=== PATIENT | female | born 1970 | race African-American/Black ===

== ENCOUNTER 2017-03-12 14:19 | Emergency (ER) | payer OTHER, SELFPAY | END 2017-03-12 16:16 | disposition home or self-care (01) | LOC: SCSER 14:19 | DX: J01.90 Acute sinusitis, unspecified (principal); H66.92 Otitis media, unspecified, left ear; D50.9 Iron deficiency anemia, unspecified; I10 Essential (primary) hypertension; E11.9 Type 2 diabetes mellitus without complications; K21.9 Gastro-esophageal reflux disease without esophagitis; E78.5 Hyperlipidemia, unspecified; Z79.84 Long term (current) use of oral hypoglycemic drugs; Z79.899 Other long term (current) drug therapy | CPT/HCPCS: 99283 ==

== ENCOUNTER 2017-03-22 10:31 | Emergency (ER) | payer OTHER, SELFPAY | END 2017-03-22 12:03 | disposition home or self-care (01) | LOC: SCSER 10:31 | DX: J01.90 Acute sinusitis, unspecified (principal); D50.0 Iron deficiency anemia secondary to blood loss (chronic); E66.9 Obesity, unspecified; I10 Essential (primary) hypertension; E11.9 Type 2 diabetes mellitus without complications; K21.9 Gastro-esophageal reflux disease without esophagitis; E78.5 Hyperlipidemia, unspecified; Z86.718 Personal history of other venous thrombosis and embolism; Z79.84 Long term (current) use of oral hypoglycemic drugs; Z79.899 Other long term (current) drug therapy | CPT/HCPCS: 99283 ==

== ENCOUNTER 2017-04-01 14:26 | Observation (INO) | payer OTHER, SELFPAY ==
[2017-04-01 15:31] LABS: INR-International Normal Ratio 2.7; Prothrombin Time 30.1 SEC (12.0-14.7)
[2017-04-01 15:33] LABS: Band 2 % (5-11); Eosinophils 5 % (0-10); Hemoglobin 11.7 g/dL (12.0-16.0); Lymphocytes 24 % (21-51); MDiff Complete? YES; Mean Corpuscular HGB CONC 33.2 g/dL (32.0-36.0); Mean Corpuscular Hemoglobin 28.2 pg (27.0-31.0); Mean Corpuscular Volume 84.9 fl (81.0-99.0); Mean Platelet Volume 6.6 fL (7.4-10.4); Monocytes 8 % (0-10); Neutrophil 56 % (42-75); PLT Morphology Comment Appears Adequate; Platelet Count 293 thou/uL (130-400); RBC Distribution Width 12.6 % (11.5-14.5); Reactive Lymphocytes 5 % (0-10); Red Blood Cell (RBC) Count 4.14 mill/uL (4.20-5.40); White Blood Cell (WBC) Count 4.9 thou/uL (4.8-10.8)
[2017-04-01 15:40] LABS: ALT (SGPT) 9 U/L (8-55); AST (SGOT) 17 U/L (5-34); Albumin 3.6 g/dL (3.5-5.0); Alkaline Phosphatase 77 U/L (40-150); Anion Gap 15 mmol/L (10-20); BUN (Urea Nitrogen) 11 mg/dL (7.0-18.7); Bilirubin, Total 0.5 mg/dL (0.2-1.2); Calc. Creatinine Clearance 0 mL/min (70-130); Calcium 9.4 mg/dL (7.8-10.44); Carbon Dioxide 26 mmol/L (22-29); Chloride 103 mmol/L (98-107); Estimated GFR-MDRD 54; Glucose 169 mg/dL (70-105); Potassium 3.9 mmol/L (3.5-5.1); Protein, Total 7.6 g/dL (6.0-8.3); Sodium 140 mmol/L (136-145)
--- NOTE | 2017-04-01 16:40 | RAD ---
LEFT KNEE FOUR VIEWS: Indication: Pain. FINDINGS: There is moderate osteoarthritis without fracture, dislocation, or significant joint abnormality. IMPRESSION: No acute osseous abnormality of the left knee. POS: [facility]
--- NOTE | 2017-04-01 17:57 | ULT ---
RIGHT LOWER EXTREMITY VENOUS DOPPLER: History: History of DVT and PE. Currently on blood thinners. Comparison: 06-14-16 ULTRASOUND WITH DOPPLER DUPLEX VENOUS LOWER EXTREMITY RIGHT TECHNIQUE: Color flow Doppler, spectral waveform analysis of pulsed Doppler, and emerson-scale imaging with flash maurice and augmentation, were used to evaluate the bilateral common femoral, femoral, popliteal, dot net developer ior tibial, and superficial femoral, veins; and the proximal portions of the profunda femoral and gre ater saphenous, veins. FINDINGS: There is partial thrombosis of the right popliteal vein. There is partial occlusion of the right femo ral vein. The distal popliteal vein is completely non-compressible. IMPRESSION: Partially occlusive thrombus distal right femoral vein extending to the proximal popliteal vein with occlusive thrombus in the distal popliteal vein. POS: [facility]
[2017-04-01] MEDS ORDERED: Ondansetron ODT 4 MG TAB SL PRN (19:08)
[2017-04-01] MEDS ORDERED: Ondansetron HCl/PF 4 MG/2 ML Vial IVP PRN (19:08)
[2017-04-01] MEDS ORDERED: Acetaminophen 325 MG TAB PO PRN (19:08)
[2017-04-01 19:39] VITALS: BMI 46.3
[2017-04-01] MEDS ORDERED: HYDROcodone/Acetaminophen 5/325 mg Tablet PO PRN (20:08)
[2017-04-01] MEDS ORDERED: Calcium Carbonate 500 MG ChewTAB PO PRN (20:08)
[2017-04-01] MEDS ORDERED: Enoxaparin Sodium 120 MG/0.8 ML SYRINGE SC SCH (20:15)
[2017-04-01] MEDS ORDERED: HumaLOG 300 UNITS/3 ML VIAL SC PRN (20:20)
[2017-04-01] MEDS ORDERED: Dextrose 5% in Water 1,000 ML IV PRN (20:20)
[2017-04-01] MEDS ORDERED: Dextrose 50% Abboject 50 ML SYRINGE SLOW IVP PRN (20:20)
[2017-04-01] MEDS ORDERED: WARFARIN PO PRN (20:23)
[2017-04-01] MEDS: Sodium Chloride 0.9% 1,000 ML IV SCH (21:00)
[2017-04-01] MEDS ORDERED: Pravastatin Sodium 20 MG TAB PO SCH (21:00)
[2017-04-02 04:08] VITALS: TEMP 98.2
--- NOTE | 2017-04-02 05:30 | HP ---
CHIEF COMPLAINT: Pain and swelling of the right leg. HISTORY OF PRESENT ILLNESS: This is a 46-year-old pleasant gentle lady with a history of multiple DV Ts in the past and PEs, came into the hospital because of right leg swelling. She had a Doppler done at the [facility], which showed a clot and she was transferred out here. Her INR was 2.7 as well. The patient has been admitted to our hospital for evaluation by Hematology and for further re commendations. She has no shortness of breath, no chest pain. Vitals were stable. PAST MEDICAL HISTORY: Significant for iron deficiency anemia, obesity, diabetes mellitus, hypertensi on, hyperlipidemia, and DVTs and PEs in the past. ALLERGIES: BACTRIM and Z-ALIREZA. SOCIAL HISTORY: Does not smoke, drink, or do recreational drugs. SURGERIES: None in the past. MEDICATIONS: Please see MAR. ALLERGIES: None. REVIEW OF SYSTEMS: Significant for no fever. No chills. No headache. No . No cough. No armand st pain, diarrhea, dysuria, or polyuria. No memory or mood changes. No neck pain. The patient comp lains of right leg pain and swelling. PHYSICAL EXAMINATION: VITAL SIGNS: The patient's blood pressure is 123/78, afebrile. The patient is saturating 94% on 2 l iters and is resting comfortably on room air. GENERAL: The patient is lying in bed in no apparent distress. HEENT: Atraumatic and normocephalic. Pupils equally round and reactive to light. Extraocular movem ents intact. Mucous membranes moist. NECK: Supple. No JVD. CHEST: Breath sounds heard. No rales or rhonchi. HEART: S1, S2. No murmurs or gallops. ABDOMEN: Soft. EXTREMITIES: Right leg is swollen and tender. Left leg, no edema. Distal pulses present. NEUROLOGIC: Alert, awake, oriented. No cranial deficits. No sensorimotor deficits. LABORATORY DATA: Potassium is 3.9, creatinine is 1.29. WBC count is 4.9, hemoglobin is 11. ASSESSMENT AND PLAN: 1. Recurrent deep venous thromboses in spite of having therapeutic INR. We will consult Hematology and treat the patient with therapeutic dose of Lovenox for now. We will follow Hematology recommenda tions. 2. Morbid obesity. The patient has been counseled. 3. Diabetes. Put the patient on insulin sliding scale and continue metformin. 4. Hypertension. Continue losartan and monitor the patient. 5. Hyperlipidemia, stable. 6. History of pulmonary embolism in the past. Right now, clinically stable. I will work with the corporate consultant in further caring for the patient.
[2017-04-02 05:57] LABS: #Eosinphils 0.1 thou/uL (0.0-0.7); #Monocytes 0.6 thou/uL (0.11-0.59); #Neutrophils 2.4 thou/uL (1.40-6.50); %Basophils 0.3 % (0.0-1.0); %Eosinophils 2.6 % (0.0-10.0); %Lymphocytes 38.1 % (21.0-51.0); %Monocytes 11.5 % (0.0-10.0); %Neutrophils 47.5 % (42.0-75.0); Hemoglobin 11.2 g/dL (12.0-16.0); Mean Corpuscular HGB CONC 33.6 g/dL (32.0-36.0); Mean Corpuscular Hemoglobin 29.7 pg (27.0-31.0); Mean Corpuscular Volume 88.3 fl (81.0-99.0); Mean Platelet Volume 7.7 fL (7.4-10.4); Platelet Count 279 thou/uL (130-400); RBC Distribution Width 12.9 % (11.5-14.5); Red Blood Cell (RBC) Count 3.78 mill/uL (4.20-5.40); White Blood Cell (WBC) Count 5.1 thou/uL (4.8-10.8)
[2017-04-02] MEDS ORDERED: Enoxaparin Sodium 120 MG/0.8 ML SYRINGE SC SCH (06:00)
[2017-04-02 06:12] LABS: Anion Gap 14 mmol/L (10-20); BUN (Urea Nitrogen) 15 mg/dL (7.0-18.7); Calc. Creatinine Clearance 145 mL/min (70-130); Carbon Dioxide 24 mmol/L (22-29); Chloride 104 mmol/L (98-107); Estimated GFR-MDRD 75; Glucose 141 mg/dL (70-105); Sodium 138 mmol/L (136-145)
[2017-04-02] MEDS ORDERED: metFORMIN 850 MG TAB PO SCH (08:00)
--- NOTE | 2017-04-02 08:29 | RAD ---
FRONTAL AND LATERAL IMAGING CHEST: Date: 04-02-17 Comparison: 02-07-16 History: Shortness of breath. FINDINGS: Heart and mediastinal contours are within normal limits. There is no pneumothorax or pleural fluid an d no focal consolidation or alveolar edema. IMPRESSION: No acute findings. POS: [facility]
[2017-04-02] MEDS ORDERED: Losartan Potassium 25 MG TAB PO SCH (09:00)
[2017-04-02 12:01] VITALS: BP 130/77
--- NOTE | 2017-04-02 12:23 | DIS ---
DATE OF ADMISSION: 04/01/2017 DATE OF DISCHARGE: 04/02/2017 DISCHARGE DIAGNOSES: Recurrent deep vein thrombosis, failure of Coumadin therapy, to be discharged o n Xarelto; iron deficiency anemia; obesity; diabetes mellitus; hypertension; hyperlipidemia; and pulm onary embolism in the past. CONSULTANTS: Oncology. DISCHARGE MEDICATIONS: Xarelto 15 mg p.o. b.i.d. and then to be transitioned to the 20 mg p.o. daily dose. BRIEF HOSPITAL COURSE: This is a 46-year-old pleasant lady came into the hospital with right leg swe lling. The patient was diagnosed by ultrasound to have recurrent clot. Oncology saw her and they de cided to stop the Coumadin and put her on Xarelto, because she had no insurance. They are going to g genie her some samples and then later make arrangements for her to get the Xarelto through their office . She is right now medically stable to be discharged. PHYSICAL EXAMINATION: VITAL SIGNS: At the time of discharge, blood pressure was 114/61, afebrile, pulse was 72, breathing comfortably. GENERAL: Patient is lying in bed in no apparent distress. HEENT: Atraumatic and normocephalic. Pupils equally round and reactive to light. Extraocular movem ents intact. Mucous membranes are moist. NECK: No JVD. CHEST: Breath sounds heard. There are no rales or rhonchi. HEART: S1, S2, no murmurs, rubs, or gallops. ABDOMEN: Soft. EXTREMITIES: Right leg swelling has improved. Tenderness has improved. NEUROLOGIC: Alert, awake, oriented. No cranial deficits. No sensorimotor deficits. The patient right now is medically stable to be discharged. She is asked to follow up with PCP and O ncology as an outpatient. She is asked to come back to the emergency room in case symptoms recur or she gets short of breath. She is medically stable to be discharged. Total time for this discharge took 35 minutes.
--- NOTE | 2017-04-02 12:28 | CON ---
DATE OF CONSULTATION: 04/02/2017 REASON FOR CONSULTATION: Recurrent DVT. HISTORY OF PRESENT ILLNESS: Ms. Santiago is a pleasant 46-year-old - [place] female who presented to the emergency room with complaints of right lower extremity pain. She had a vascular ultrasound which showed a partially occlusive thrombus of the distal right femoral vein extending to the proximal popliteal vein and had an occlusive thrombus of the distal popliteal. Patient is currently on Coumadin for recurrent DVT and pulmonary embolism. Her INR was therapeutic on admission. The patient's first PE was in 2014. She completed 6 months of anticoagulation and did well until 06/05/2016 when she had a repeat DVT and pulmonary embolism. She was placed on lifelong anticoagulation with Coumadin and is [facility]. She has been therapeutic since that time until she presented to the ER yesterday. She denies any shortness of breath or chest pain, no abdominal pain. She has pain in her right lower extremity. She was placed on Lovenox and we were asked to give our recommendations. PAST MEDICAL HISTORY: 1. Recurrent DVT and pulmonary embolism. 2. Diabetes mellitus 2. 3. Hypertension. 4. Hyperlipidemia. PAST SURGICAL HISTORY: None. ALLERGIES: BACTRIM and Z-ALIREZA. HOME MEDICATIONS: 1. Pepcid 40 mg daily. 2. Ferrous sulfate 325 mg daily. 3. Gabapentin 100 mg daily. 4. Hydrochlorothiazide 12.5 mg daily. 5. Losartan 50 mg daily. 6. Glucophage 850 mg daily. 7. Pravachol 20 mg daily. 8. Coumadin 12.5 mg daily. FAMILY HISTORY: No history of unprovoked clotting. She did have a brother with a DVT after a surgical procedure. SOCIAL HISTORY: No alcohol, tobacco or illicit drug use. REVIEW OF SYSTEMS: Ten point review systems is negative except for noted in HPI. PHYSICAL EXAMINATION: VITAL SIGNS: Temperature is 98.2, pulse 74, respiratory rate 16, BP is 114/61. GENERAL: Well-developed, well-nourished female in no acute distress. HEENT: Normocephalic, atraumatic. Pupils equal and reactive to light. NECK: Supple. CARDIOVASCULAR: Regular rate and rhythm. LUNGS: Clear. ABDOMEN: Soft, nontender, bowel sounds are positive. EXTREMITIES: She has mild swelling in her right calf. No clubbing or cyanosis. SKIN: No rash. HEMATOLOGIC: No petechia or purpura. NEUROLOGIC: Nonfocal. PSYCHIATRIC: The patient is alert and oriented and appropriate. PERTINENT LABORATORY AND X-RAYS: Current WBCs are 5.1, hemoglobin 11.2, hematocrit 33.4, platelet count is 279,000, 47% neutrophils, 38% lymphocytes. PT was 30.1, INR was 2.7. Sodium is 138, potassium 4.0, chloride 104, CO2 is 24 , BUN is 15, creatinine 0.97, calcium was 9, total bilirubin was 0.5, AST is 17 , ALT is 9, alkaline phosphatase is 77, serum total protein is 7.6, albumin 3.6 , globulin 4.0. Vascular ultrasound per HPI. Chest x-ray was negative for any acute process. ASSESSMENT: 1. Recurrent deep venous thrombosis, on Coumadin. 2. History of deep venous thrombosis and pulmonary embolus. DISCUSSION: The patient needs to be switched from Coumadin to factor Xa inhibitors such as Eliquis or Xarelto. Unfortunately, she is uninsured and unable to afford the medication. I have asked case management to assist with acquiring the medication in the outpatient setting and we will provide Xarelto blister pack to start while we will work on acquisition of the medication. This discussed in detail with the patient including the risks associated with Xarelto. She would like to proceed. She will follow up in our clinic in [address] Salazar. The case was discussed in detail with him. Thank you for the consult. LUCIE
[2017-04-02] MEDS: Sodium Chloride 0.9% 1,000 ML IV SCH (13:06)
== END 2017-04-02 15:49 | disposition home or self-care (01) ==
LOC: SCSER 14:26 → ONC 17:47
PROVIDERS: ADMIT Internal Medicine; ATTEND Internal Medicine
DX: I82.401 Acute embolism and thrombosis of unspecified deep veins of right lower extremity (principal); D50.9 Iron deficiency anemia, unspecified; E11.9 Type 2 diabetes mellitus without complications; I10 Essential (primary) hypertension; K21.9 Gastro-esophageal reflux disease without esophagitis; E78.00 Pure hypercholesterolemia, unspecified; M17.12 Unilateral primary osteoarthritis, left knee; E66.01 Morbid (severe) obesity due to excess calories; Z68.42 Body mass index [BMI] 45.0-49.9, adult; Z86.711 Personal history of pulmonary embolism; Z86.718 Personal history of other venous thrombosis and embolism; Z79.01 Long term (current) use of anticoagulants; Z79.84 Long term (current) use of oral hypoglycemic drugs; Z79.899 Other long term (current) drug therapy; Z88.1 Allergy status to other antibiotic agents; Z88.2 Allergy status to sulfonamides; Z88.8 Allergy status to other drugs, medicaments and biological substances; Z98.890 Other specified postprocedural states
CPT/HCPCS: 36415; 36416; 71046; 80048; 80053; 85025; 85610; 96360; 96361; 96372; G0378; J1650

== ENCOUNTER 2017-07-24 16:01 | Outpatient (CLI) | payer OTHER | END 2017-07-24 16:02 | disposition home or self-care (01) | LOC: BICMAMMO 16:01 | PROVIDERS: ATTEND Family Medicine | DX: Z12.31 Encounter for screening mammogram for malignant neoplasm of breast (principal); Z80.3 Family history of malignant neoplasm of breast | CPT/HCPCS: 77063; 77067 ==

== ENCOUNTER 2017-08-14 04:00 | Outpatient (CLI) | payer OTHER ==
--- NOTE | 2017-08-15 09:11 | MRI ---
LUMBAR SPINE MRI WITHOUT CONTRAST: Date: 08-14-17 Comparison: None. History: Left lower extremity radiculopathy, back pain radiating into bilateral hips. Technique: Multiplanar, multisequence MR imaging of the lumbar spine provided without contrast. FINDINGS: The sagittal STIR imaging demonstrates no focal area of osseous marrow edema. Lumbar vertebral body h eight and alignment is within normal limits. Body habitus limits detailed assessment of the contents of the thecal sac on the axial T1 and T2 weighted imaging. Assuming five lumbar type vertebral bodies , the conus medullaris terminates in the L1 region. T12-L1: No significant central canal or neural foraminal stenosis. L1-2: Intervertebral disc height and signal intensity is within normal limits. Mild bilateral facet h ypertrophy with no significant central canal or neural foraminal stenosis. L2-3: Mild bilateral facet hypertrophy, left greater than right. Intervertebral disc height and signa l intensity appears within normal limits with no significant central canal or neural foraminal stenos is. L3-4: Mild bilateral facet hypertrophy. Intervertebral disc height and signal intensity is within nor mal limits with no significant central canal or neural foraminal stenosis. L4-5: Moderate bilateral facet hypertrophy. Intervertebral disc height and signal intensity within no rmal limits. No significant central canal or neural foraminal stenosis. L5-S1: Bilateral facet hypertrophy, left greater than right. Intervertebral disc height and signal in tensity within normal limits with no significant central canal or neural foraminal stenosis. The imag ed retroperitoneal structures appear grossly unremarkable. IMPRESSION: Multilevel lower lumbar spine facet hypertrophic change. No significant central canal or neural lamar inal stenosis. POS: [facility]
== END 2017-08-14 04:01 | disposition home or self-care (01) ==
LOC: SCSMRI 04:00
PROVIDERS: ATTEND Psychiatry & Neurology Neurology
DX: M54.16 Radiculopathy, lumbar region (principal); M46.96 Unspecified inflammatory spondylopathy, lumbar region
CPT/HCPCS: 72148

== ENCOUNTER 2018-01-10 22:15 | Emergency (ER) | payer OTHER ==
[2018-01-10] MEDS ORDERED: Acetaminophen 500 MG TAB ONE (22:41)
[2018-01-10 22:59] LABS: #Basophils 0.1 thou/uL (0.0-0.2); #Eosinphils 0.1 thou/uL (0.0-0.7); #Lymphocytes 1.7 thou/uL (1.20-3.40); #Monocytes 0.5 thou/uL (0.11-0.59); #Neutrophils 3.2 thou/uL (1.40-6.50); %Basophils 2.1 % (0.0-1.0); %Eosinophils 2.1 % (0.0-10.0); %Lymphocytes 30.1 % (21.0-51.0); %Monocytes 8.1 % (0.0-10.0); %Neutrophils 57.5 % (42.0-75.0); Hemoglobin 12.5 g/dL (12.0-16.0); Mean Corpuscular HGB CONC 33.2 g/dL (32.0-36.0); Mean Corpuscular Hemoglobin 28.4 pg (27.0-31.0); Mean Corpuscular Volume 85.5 fL (78.0-98.0); Mean Platelet Volume 8.8 fL (7.4-10.4); Platelet Count 197 thou/uL (130-400); White Blood Cell (WBC) Count 5.6 thou/uL (4.8-10.8)
[2018-01-10 23:13] LABS: ALT (SGPT) 9 U/L (8-55); AST (SGOT) 15 U/L (5-34); Alkaline Phosphatase 87 U/L (40-150); Anion Gap 14 mmol/L (10-20); BUN (Urea Nitrogen) 13 mg/dL (7.0-18.7); Bilirubin, Total 0.4 mg/dL (0.2-1.2); Calc. Creatinine Clearance 0 mL/min (70-130); Calcium 10.1 mg/dL (7.8-10.44); Carbon Dioxide 27 mmol/L (22-29); Chloride 104 mmol/L (98-107); Estimated GFR-MDRD 61; Globulin 4.1 g/dL (2.4-3.5); Glucose 153 mg/dL (70-105); Potassium 3.9 mmol/L (3.5-5.1); Protein, Total 8.1 g/dL (6.0-8.3); Sodium 141 mmol/L (136-145)
--- NOTE | 2018-01-11 08:07 | ULT ---
PRELIMINARY REPORT/[facility]/EMERGENTY AFTER-HOURS PROCEDURE Addendum created by Luis Chappell MD on 01/11/2018 12:44 AM Central Time ([place] & [place]) THIS REPORT CONT AINS FINDINGS THAT MAY BE CRITICAL TO PATIENT CARE. The findings were verbally communicated via telep galo conference with SUSAN NGUYEN at 12:44 AM CDT on 01/11/2018. The findings were acknowled ged and understood. Initial Report created on 01/11/2018 12:37 AM Central Time ([place] & [place]) US Right Duplex Lower Extremity Veins, Limited EXAM DATE/TIME: 01/10/2018 11:55 PM CLINICAL HISTORY: 47 years old, female; Pain; Leg, upper; Right; Patient HX: Rle pain; Additional info: HX; Previous rl e dvt dx 06/10, dvt at fv dst to pop dst. Patient on blood thinner. TECHNIQUE: Real-time Duplex ultrasound scan of the Right lower extremity with 2-D galeas scale, color Doppler flow and spectral waveform analysis. Limited exam was focused on the right lower extremity veins. COMPARISON: No relevant prior studies available. FINDINGS: Sonographic penetration appears slightly limited by body habitus. The right popliteal vein is only partially compressible. There is some color flow noted within the popliteal vein. Given these findings, nonocclusive DVT is suspected. Acute nonocclusive DVT cannot be differentiated from chronic recanalized DVT by this exam. Remainder of the right lower extremity deep veins from the common femoral to the right calf, demonstrate patenc y. The visualized proximal right greater saphenous vein is compressible, and without evidence of clot. No perivenous soft tissue fluid collections are seen. IMPRESSION: Nonocclusive DVT involving the right popliteal vein. Findings discussed above in detail. Thank you for allowing us to participate in the care of your patient. Dictated and Authenticated by: Luis Chappell MD 01/11/2018 12:37 AM Central Time ([place] & [place]) FINAL REPORT EMERGENT AFTER HOURS RIGHT LOWER EXTREMITY VENOUS DUPLEX ULTRASOUND WITH SPECTRAL ANALYSIS AND COLOR FLOW EVALUATION: DATE: 01/10/2018. HISTORY: Right lower extremity pain. Patient on blood thinners. History of prior lower extremity DVT. FINDINGS: Galeas scale, color flow, Doppler evaluation, and spectral analysis of the right lower extremity venous structures is performed with 2D imaging. The right lower extremity common femoral, superficial femo ral, popliteal, posterior tibial, most proximal greater saphenous and profunda femoral veins are imag ed. There is incomplete lumen compressibility involving the right lower extremity popliteal vein with dim inished flow. The remaining visualized deep venous structures of the right lower extremity demonstra te normal lumen compressibility and flow. IMPRESSION: 1. Nonocclusive deep vein thrombosis right popliteal vein. 2. Findings are in agreement with the preliminary report by [facility]. Acute thrombus is difficult to d ifferentiate from more chronic thrombus. The patient did have prior deep vein thrombosis involving t he popliteal vein on the prior study of 04/01/2017. The thrombus within the distal popliteal vein on t he prior study was occlusive, which is not present on today's examination. There is now flow within the distal right lower extremity popliteal vein. The previously noted thrombus within the distal rig ht lower extremity superficial femoral vein and proximal popliteal vein is not appreciated on this ex amination, and these areas demonstrate normal lumen compressibility on today's exam. POS: [facility]
== END 2018-01-11 01:00 | disposition home or self-care (01) ==
LOC: SCSER 22:15
DX: I82.431 Acute embolism and thrombosis of right popliteal vein (principal); D50.9 Iron deficiency anemia, unspecified; E78.5 Hyperlipidemia, unspecified; E66.9 Obesity, unspecified; I10 Essential (primary) hypertension; E11.9 Type 2 diabetes mellitus without complications; K21.9 Gastro-esophageal reflux disease without esophagitis; Z79.84 Long term (current) use of oral hypoglycemic drugs; Z79.899 Other long term (current) drug therapy
CPT/HCPCS: 80053; 85025

== ENCOUNTER 2018-03-12 10:42 | Outpatient (CLI) | payer MEDICAID ==
--- NOTE | 2018-03-12 12:29 | ULT ---
RENAL ULTRASOUND: Date: 03-12-18 Comparison: None. History: Proteinuria. Technique: Multiplanar grayscale sonographic imaging of the kidneys and urinary bladder obtained. FINDINGS: Right kidney measures 11.3 x 6.0 x 5.3 cm and the left kidney measures 11.4 x 4.8 x 4.8 cm. No renal mass, hydronephrosis, or renal stone seen. Urinary bladder is empty and thus not well assessed. IMPRESSION: Unremarkable renal ultrasound. POS: [facility]
== END 2018-03-12 10:43 | disposition home or self-care (01) ==
LOC: SCSULT 10:42
PROVIDERS: ATTEND Internal Medicine Nephrology
DX: R80.9 Proteinuria, unspecified (principal)
CPT/HCPCS: 76770

== ENCOUNTER 2018-03-28 10:07 | Outpatient (CLI) | payer MEDICAID ==
--- NOTE | 2018-03-28 13:32 | ULT ---
ULTRASOUND ABDOMEN: Date: 03/28/18 HISTORY: Fatty liver. FINDINGS: The liver demonstrates increased echogenicity consistent with fatty infiltration. No focal mass or in trahepatic ductal dilatation is seen. The gallbladder is suboptimally visualized without definite gal lstones, gallbladder wall thickening, or pericholecystic fluid. The common duct and pancreas are not satisfactorily visualized. No hydronephrosis seen on either side. Spleen and visualized portions of t he aorta and IVC are unremarkable. No free fluid is seen. IMPRESSION: Fatty liver. POS: [facility]
== END 2018-03-28 10:08 | disposition home or self-care (01) ==
LOC: ULT 10:07
PROVIDERS: ATTEND Family Medicine
DX: K76.0 Fatty (change of) liver, not elsewhere classified (principal)
CPT/HCPCS: 76700

== ENCOUNTER 2018-04-02 09:16 | Outpatient (CLI) | payer MEDICAID, OTHER ==
--- NOTE | 2018-04-02 13:04 | CT ---
CT ANGIOGRAM CHEST WITH CONTRAST: Date: 04/02/18 HISTORY: I26.99 pulmonary emboli. Deep venous thrombosis and embolism. Patient has a known history of pulmonar y emboli. COMPARISON: CTA chest dated 06/15/16. FINDINGS: CT angiogram chest performed after the intravenous administration of contrast. 3D rendering is provid ed. There is relative atrophy of the left lobe of the thyroid. No proximal segmental or pulmonary arteria l filling defect, although limited due to delayed phase of contrast. The previously described right and left lower lobe pulmonary emboli have resolved. No new pulmonary e mbolism. No pneumothorax. No effusion. No pericardial effusion. Diffuse hepatic steatosis. Lungs are clear. No evidence for pneumonia. No effusion or pneumothorax. No acute osseous abnormality. IMPRESSION: 1. Interval resolution of the previously described pulmonary emboli from 2017. 2. No new pulmonary embolism. 3. Mild cardiomegaly. 4. No acute inflammatory process in the chest. POS: [facility]
== END 2018-04-02 09:17 | disposition home or self-care (01) ==
LOC: SCSCT 09:16
PROVIDERS: ATTEND Family Medicine
DX: I26.99 Other pulmonary embolism without acute cor pulmonale (principal); I51.7 Cardiomegaly
CPT/HCPCS: 71275

== ENCOUNTER 2018-05-28 09:37 | Emergency (ER) | payer OTHER, SELFPAY | END 2018-05-28 10:17 | disposition home or self-care (01) | LOC: SCSER 09:37 | DX: B02.21 Postherpetic geniculate ganglionitis (principal); D50.9 Iron deficiency anemia, unspecified; E66.9 Obesity, unspecified; I10 Essential (primary) hypertension; E11.9 Type 2 diabetes mellitus without complications; K21.9 Gastro-esophageal reflux disease without esophagitis; E78.5 Hyperlipidemia, unspecified; Z86.718 Personal history of other venous thrombosis and embolism; Z79.899 Other long term (current) drug therapy; Z79.01 Long term (current) use of anticoagulants; Z79.84 Long term (current) use of oral hypoglycemic drugs | CPT/HCPCS: 99282 ==

== ENCOUNTER 2018-06-09 18:59 | Emergency (ER) | payer SELFPAY | END 2018-06-09 19:55 | disposition home or self-care (01) | LOC: SCSER 18:59 | DX: B02.29 Other postherpetic nervous system involvement (principal); D50.9 Iron deficiency anemia, unspecified; E66.9 Obesity, unspecified; I10 Essential (primary) hypertension; E11.9 Type 2 diabetes mellitus without complications; K21.9 Gastro-esophageal reflux disease without esophagitis; E78.5 Hyperlipidemia, unspecified; Z86.718 Personal history of other venous thrombosis and embolism; Z79.899 Other long term (current) drug therapy; Z79.84 Long term (current) use of oral hypoglycemic drugs; Z79.01 Long term (current) use of anticoagulants | CPT/HCPCS: 99283 ==

== ENCOUNTER 2018-07-26 08:40 | Outpatient (CLI) | payer OTHER ==
--- NOTE | 2018-07-26 13:39 | MMO ---
Bilateral MAMMO Bilat Screen [facility]. CLINICAL HISTORY: Patient is 48 years old and is seen for screening. The patient has the following family history of breast cancer: paternal grandmother. The patient has no personal history of cancer. VIEWS: The views performed were: bilateral craniocaudal with tomosynthesis; bilateral mediolateral oblique; and bilateral mediolateral oblique with tomosynthesis. FILMS COMPARED: The present examination has been compared to prior imaging studies performed at [facility] on 07/24/2017, and at [facility] on 04/10/2011, 04/13/2011, 05/09/2012 and 05/29/2014. MAMMOGRAM FINDINGS: There are scattered fibroglandular densities. There are no suspicious masses, suspicious calcifications, or new areas of architectural distortion. IMPRESSION: THERE IS NO MAMMOGRAPHIC EVIDENCE OF MALIGNANCY. A ROUTINE FOLLOW-UP MAMMOGRAM IN 1 YEAR IS RECOMMENDED. THE RESULTS OF THIS EXAM WERE SENT TO THE PATIENT. ACR BI-RADS Category 1 - Negative MAMMOGRAPHY NOTE: 1. A negative mammogram report should not delay a biopsy if a dominant of clinically suspicious mass is present. 2. Approximately 10% to 15% of breast cancers are not detected by mammography. 3. Adenosis and dense breasts may obscure an underlying neoplasm.
== END 2018-07-26 08:41 | disposition home or self-care (01) ==
LOC: BICMAMMO 08:40
PROVIDERS: ATTEND Family Medicine
DX: Z12.31 Encounter for screening mammogram for malignant neoplasm of breast (principal); Z80.3 Family history of malignant neoplasm of breast
CPT/HCPCS: 77063; 77067

== ENCOUNTER 2018-08-17 | Emergency (ER) | payer OTHER ==
[2018-08-17 01:21] LABS: #Basophils 0.1 thou/uL (0.0-0.2); #Eosinphils 0.1 thou/uL (0.0-0.7); #Lymphocytes 1.8 thou/uL (1.20-3.40); #Monocytes 0.6 thou/uL (0.11-0.59); #Neutrophils 6.9 thou/uL (1.40-6.50); %Basophils 0.7 % (0.0-1.0); %Eosinophils 0.7 % (0.0-10.0); %Lymphocytes 18.7 % (21.0-51.0); %Monocytes 6.3 % (0.0-10.0); %Neutrophils 73.6 % (42.0-75.0); Hemoglobin 12.3 g/dL (12.0-16.0); Mean Corpuscular HGB CONC 33.9 g/dL (32.0-36.0); Mean Corpuscular Hemoglobin 29.1 pg (27.0-31.0); Mean Corpuscular Volume 85.8 fL (78.0-98.0); Mean Platelet Volume 7.1 fL (7.4-10.4); Platelet Count 249 thou/uL (130-400); RBC Distribution Width 12.6 % (11.5-14.5); Red Blood Cell (RBC) Count 4.23 mill/uL (4.20-5.40); White Blood Cell (WBC) Count 9.4 thou/uL (4.8-10.8)
[2018-08-17 01:46] LABS: ALT (SGPT) 10 U/L (8-55); AST (SGOT) 16 U/L (5-34); Albumin 4.1 g/dL (3.5-5.0); Alkaline Phosphatase 97 U/L (40-150); Anion Gap 16 mmol/L (10-20); BUN (Urea Nitrogen) 12 mg/dL (7.0-18.7); Bilirubin, Total 0.6 mg/dL (0.2-1.2); Calc. Creatinine Clearance 0 mL/min (70-130); Calcium 9.6 mg/dL (7.8-10.44); Carbon Dioxide 25 mmol/L (22-29); Chloride 101 mmol/L (98-107); Estimated GFR-MDRD 54; Globulin 4.3 g/dL (2.4-3.5); Glucose 185 mg/dL (70-105); Potassium 3.7 mmol/L (3.5-5.1); Protein, Total 8.4 g/dL (6.0-8.3); Sodium 138 mmol/L (136-145)
[2018-08-17] MEDS ORDERED: cefTRIAXone\\ROCEPHIN 1 GM VIAL ONE (01:55)
[2018-08-17] MEDS ORDERED: Sodium Chloride 0.9% 100 ML ONE (01:56)
[2018-08-17] MEDS ORDERED: Aspirin Chewable 81 MG TAB ONE (02:46)
[2018-08-17] MEDS ORDERED: Acetaminophen 500 MG TAB ONE (02:49)
--- NOTE | 2018-08-17 08:34 | CT ---
PRELIMINARY REPORT/[facility]/EMERGENCY AFTER HOURS PROCEDURE: EXAM: CT Angiography Chest With Contrast EXAM DATE/TIME: 08/17/2018 1:03 AM CLINICAL HISTORY: 48 years old, female; Signs and symptoms and condition or disease; Cardiovascular condition or diseas e; Deep vein thrombosis (dvt); Lower extremity, right; No it is chronic; Cough and shortness of breat h; Patient HX: Productive cough for three days, hs of pe and dvt in 2014 and 2016. PT takes xarelto TECHNIQUE: Imaging protocol: Axial computed tomographic angiography images of the chest with intravenous contras t using CT angiography protocol. Coronal reformatted images were created and reviewed. 3D rendering: MIP reconstructed images were created and reviewed. Radiation optimization: All CT scans at this facility use at least one of these dose optimization william hniques: automated exposure control; mA and/or kV adjustment per patient size (includes targeted exam s where dose is matched to clinical indication); or iterative reconstruction. Contrast material: [id number]; Contrast volume: 95 ml; Contrast route: IV; COMPARISON: No relevant prior studies available. FINDINGS: Pulmonary arteries: No pulmonary emboli. Aorta: Normal. No aortic aneurysm. No aortic dissection. Lungs: Small consolidation within the inferior aspect of the lingula, likely pneumonia. Pleural space: Normal. No pneumothorax. No pleural effusion. Heart: Normal. No cardiomegaly. No pericardial effusion. Lymph nodes: Few small lymph nodes within the mediastinum, likely reactive. Bones/joints: Multilevel thoracic spine degenerative changes. Soft tissues: Unremarkable. IMPRESSION: 1. No pulmonary emboli. 2. Small consolidation within the inferior aspect of the lingula, likely pneumonia. Recommend followu p. Thank you for allowing us to participate in the care of your patient. Dictated and Authenticated by: Harpreet Martines MD 08/17/2018 2:21 AM Central Time ([place] & [place]) FINAL REPORT EMERGENCY AFTER HOURS CTA CHEST: Date: 08/17/18 IMPRESSION: I agree with the preliminary report provided by Shann[facility]. There is opacity within the lingula suspicious for pneumonia. POS: [facility]
[2018-08-17] MEDS ORDERED: Iopamidol 370 76% 100 ML VIAL ONE (09:00)
== END 2018-08-17 03:18 | disposition home or self-care (01) ==
LOC: SCSER
DX: J18.1 Lobar pneumonia, unspecified organism (principal); D50.9 Iron deficiency anemia, unspecified; I10 Essential (primary) hypertension; E11.9 Type 2 diabetes mellitus without complications; E78.5 Hyperlipidemia, unspecified; K21.9 Gastro-esophageal reflux disease without esophagitis; Z86.718 Personal history of other venous thrombosis and embolism; Z79.891 Long term (current) use of opiate analgesic; Z79.01 Long term (current) use of anticoagulants; Z79.899 Other long term (current) drug therapy; Z79.84 Long term (current) use of oral hypoglycemic drugs
CPT/HCPCS: 71275; 80053; 84484; 84702; 85025; 93005; 96361; 96365; J0696; J3490; Q9967

== ENCOUNTER 2019-02-14 08:37 | Outpatient (CLI) | payer OTHER ==
[2019-02-14] MEDS ORDERED: Iopamidol 370 76% 100 ML VIAL ONE (09:00)
--- NOTE | 2019-02-14 10:00 | CT ---
Neck CT with IV contrast: 02/14/2019 COMPARISON: None HISTORY: Right-sided neck mass TECHNIQUE: Axial CT imaging at 2 mm intervals from lung apices through skull base with IV contrast. C oronal and sagittal reformatted imaging obtained. FINDINGS: Imaged lung apices are unremarkable. There is mild mucosal thickening involving the maxillary sinus on the left. The retroantral fat and parapharyngeal fat appears clear bilaterally. There is prominent fatty atroph y of the submandibular gland and the parotid gland on the left. The submandibular gland on the right appears mildly enlarged and somewhat ill-defined peripherally. T here is also a mild degree of fat stranding lateral to the right submandibular gland. In addition, there are 2 punctate calcifications on axial image 47 which may be 2 punctate sialoliths within the d orsal aspect of the right submandibular duct. The parotid gland on the right demonstrates mild increased internal density and mild peripheral contour irregularity with probable mild fat stranding of the lateral subcutaneous fat. There is no discrete calcification along the course of the parotid duct on the right. The tonsillar pillars, epiglottis and preepiglottic fat, hyoid bone, thyroid cartilage, cricoid carti amy, and level of the glottis appear unremarkable. The left lobe of the thyroid gland is diminutive. No neck lymphadenopathy is noted. There is a medialized retropharyngeal course involving the mid/distal common carotid artery and the p roximal internal carotid artery bilaterally. There is no worrisome lytic or blastic bone lesion. IMPRESSION: 1. The right submandibular gland appears mildly hyperdense and enlarged with lateral fat stranding an d there are 2 probable punctate stones within the dorsal aspect of the right submandibular duct. Findings suggest sialoadenitis/sialolithiasis. In order to exclude an mass intrinsic to the right sub mandibular gland, follow-up imaging following treatment to document resolution of the right submandibular gland abnormality advised. 2. Possible right parotiditis with no evidence for a stone within the right parotid duct.
== END 2019-02-14 08:38 | disposition home or self-care (01) ==
LOC: SCSCT 08:37
PROVIDERS: ATTEND Otolaryngology
DX: R22.1 Localized swelling, mass and lump, neck (principal)
CPT/HCPCS: 70491; Q9967

== ENCOUNTER 2019-12-11 12:39 | Outpatient (CLI) | payer BC ==
--- NOTE | 2019-12-11 13:52 | MMO ---
Bilateral MAMMO Bilat Screen [facility]. CLINICAL HISTORY: Patient is 49 years old and is seen for screening. The patient has the following family history of breast cancer: paternal grandmother. The patient has no personal history of cancer. VIEWS: The views performed were: bilateral craniocaudal with tomosynthesis and bilateral mediolateral oblique with tomosynthesis. FILMS COMPARED: The present examination has been compared to prior imaging studies performed at [facility] on 07/24/2017 and 07/26/2018, and at [facility] on 05/09/2012 and 05/29/2014. This study has been interpreted with the assistance of computer-aided detection. MAMMOGRAM FINDINGS: There are scattered fibroglandular densities. There are no suspicious masses, suspicious calcifications, or new areas of architectural distortion. IMPRESSION: THERE IS NO MAMMOGRAPHIC EVIDENCE OF MALIGNANCY. A ROUTINE FOLLOW-UP MAMMOGRAM IN 1 YEAR IS RECOMMENDED. THE RESULTS OF THIS EXAM WERE SENT TO THE PATIENT. ACR BI-RADS Category 1 - Negative MAMMOGRAPHY NOTE: 1. A negative mammogram report should not delay a biopsy if a dominant of clinically suspicious mass is present. 2. Approximately 10% to 15% of breast cancers are not detected by mammography. 3. Adenosis and dense breasts may obscure an underlying neoplasm. Reported by: VONNIE STEVENSON MD Electonically Signed: [id number]
== END 2019-12-11 12:40 | disposition home or self-care (01) ==
LOC: BICMAMMO 12:39
PROVIDERS: ATTEND Family Medicine
DX: Z12.31 Encounter for screening mammogram for malignant neoplasm of breast (principal); Z80.3 Family history of malignant neoplasm of breast
CPT/HCPCS: 77063; 77067